=== PATIENT | male | born 1995 | race Caucasian/White ===

== ENCOUNTER 2017-05-14 17:02 | Emergency (ER) | payer OTHER ==
[2017-05-14] MEDS ORDERED: ACETAMINOPHEN 325 MG TAB As Ordered (17:12)
[2017-05-14] MEDS: ACETAMINOPHEN 325 MG TAB PO (17:23)
[2017-05-14 18:29] LABS: INFLUENZA A AMPLIFICATION POSITIVE (NEGATIVE); INFLUENZA B AMPLIFICATION NEGATIVE (NEGATIVE); RSV AMPLIFICATION NEGATIVE (NEGATIVE)
[2017-05-14] MEDS: IBUPROFEN 600 MG TAB PO (20:11)
[2017-05-14] MEDS: BENZONATATE 100 MG CAP PO (20:11)
[2017-05-14] MEDS: OSELTAMIVIR PHOSPHATE 75 MG CAP (TAMIFLU) PO (20:11)
== END 2017-05-14 20:23 | disposition home or self-care (01) ==
LOC: M ED 17:02
DX: J09.X2 Influenza due to identified novel influenza A virus with other respiratory manifestations (principal); Z91.81 History of falling; R51 Headache
CPT/HCPCS: 87631

== ENCOUNTER 2017-07-21 04:58 | Emergency (ER) | payer OTHER ==
[2017-07-21] MEDS: ONDANSETRON 4 MG ORAL DISINTEGRATING TAB (Q0162 PER 1MG) PO (06:00)
== END 2017-07-21 08:35 | disposition home or self-care (01) ==
LOC: M ED 04:58
DX: A05.9 Bacterial foodborne intoxication, unspecified (principal)
CPT/HCPCS: Q0162